=== PATIENT | male | born 2000 | race African-American/Black ===

== ENCOUNTER 2022-01-11 13:16 | Emergency (ER) | payer MEDICAID ==
[~2022-01-11] VITALS: Ht 177.8 cm; Wt 69.0 kg
[2022-01-11 13:39] VITALS: BP 110/69
== END 2022-01-12 04:15 | disposition left against medical advice (07) ==
LOC: ER 13:16
DX: Z53.21 Procedure and treatment not carried out due to patient leaving prior to being seen by health care provider (principal)